=== PATIENT | female | born 1960 | race Asian ===

== ENCOUNTER 2021-09-22 08:40 | Outpatient (CLI) | payer BC ==
[2021-09-22 21:46] LABS: SARS-CoV-2 PCR by NAA Not Detected (NotDetected)
== END 2021-09-22 08:41 | disposition home or self-care (01) ==
LOC: LABBT 08:40
PROVIDERS: ATTEND Internal Medicine Gastroenterology
DX: Z01.812 Encounter for preprocedural laboratory examination (principal); Z12.11 Encounter for screening for malignant neoplasm of colon; Z20.822 Contact with and (suspected) exposure to COVID-19
CPT/HCPCS: U0003; U0005

== ENCOUNTER 2021-09-25 07:42 | Day surgery (SDC) | payer BC ==
[2021-09-24 09:34] VITALS: BMI 24.7
[2021-09-25] MEDS ORDERED: PHENYLEPHRINE-NS 100 MCG/ML 10 ML SYRINGE ONE (09:34)
[2021-09-25] MEDS ORDERED: Lidocaine 1% PF 5 ML VIAL ONE (09:34)
[2021-09-25] MEDS ORDERED: PROPOFOL 200 MG/20 ML VIAL ONE (09:34)
== END 2021-09-25 10:35 | disposition home or self-care (01) ==
LOC: SDC 07:42
PROVIDERS: ATTEND Internal Medicine Gastroenterology
PROC: 0DBN8ZX Excision of Sigmoid Colon, Via Natural or Artificial Opening Endoscopic, Diagnostic (ICD-10-PCS; principal; 2021-09-25)
DX: Z12.11 Encounter for screening for malignant neoplasm of colon (principal); K63.5 Polyp of colon; K64.9 Unspecified hemorrhoids; I10 Essential (primary) hypertension; Z90.710 Acquired absence of both cervix and uterus; Z88.8 Allergy status to other drugs, medicaments and biological substances; Z98.890 Other specified postprocedural states; Z79.899 Other long term (current) drug therapy
CPT/HCPCS: 88305; J2704

== ENCOUNTER 2022-05-12 15:21 | Outpatient (CLI) | payer BC | END 2022-05-12 15:22 | disposition home or self-care (01) | LOC: RAD-FRANK 15:21 | PROVIDERS: ATTEND Family Medicine | DX: J40 Bronchitis, not specified as acute or chronic (principal) | CPT/HCPCS: 71046 ==

== ENCOUNTER 2022-09-06 18:13 | Inpatient (IN) | payer BC ==
[~2022-09-06 18:13] MED LIST: Iopamidol-370 76% 500 ML 1 ML ONE
[2022-09-06 18:37] LABS: #Basophils 0.1 thou/uL (0.0-0.2); #Eosinphils 0.1 thou/uL (0.0-0.7); #Lymphocytes 5.4 thou/uL (1.20-3.40); #Monocytes 1.1 thou/uL (0.11-0.59); #Neutrophils 4.9 thou/uL (1.40-6.50); %Basophils 0.7 % (0.0-1.0); %Eosinophils 0.7 % (0.0-10.0); %Lymphocytes 46.5 % (21.0-51.0); %Monocytes 9.3 % (0.0-10.0); %Neutrophils 42.7 % (42.0-75.0); Hemoglobin 13.7 g/dL (12.0-16.0); Mean Corpuscular HGB CONC 32.9 g/dL (32.0-36.0); Mean Corpuscular Hemoglobin 29.6 pg (27.0-31.0); Mean Corpuscular Volume 89.8 fL (78.0-98.0); Mean Platelet Volume 6.6 fL (7.4-10.4); Platelet Count 296 thou/uL (130-400); RBC Distribution Width 11.9 % (11.5-14.5); Red Blood Cell (RBC) Count 4.65 mill/uL (4.20-5.40); White Blood Cell (WBC) Count 11.5 thou/uL (4.8-10.8)
[2022-09-06 19:08] LABS: ALT (SGPT) 57 U/L (8-55); AST (SGOT) 45 U/L (5-34); Albumin 4.3 g/dL (3.5-5.0); Alkaline Phosphatase 133 U/L (40-110); Anion Gap 14 mmol/L (10-20); BUN (Urea Nitrogen) 7 mg/dL (9.8-20.1); Bilirubin, Total 0.3 mg/dL (0.2-1.2); Calc. Creatinine Clearance 0 mL/min (70-130); Carbon Dioxide 25 mmol/L (22-29); Chloride 103 mmol/L (98-107); Estimated GFR 98; Globulin 2.9 g/dL (2.4-3.5); Glucose 107 mg/dL (70-105); Lipase 38 U/L (8-78); Potassium 3.5 mmol/L (3.5-5.1); Protein, Total 7.2 g/dL (6.0-8.3); Sodium 138 mmol/L (136-145)
[2022-09-06] MEDS ORDERED: Zolpidem Tartrate 5 MG TAB PO PRN (22:05)
[2022-09-06] MEDS ORDERED: Nitroglycerin 0.4 MG TAB (25 Tab Bottle) SL PRN (22:05)
[2022-09-06] MEDS ORDERED: Guaifenesin DM 100-10/5 ML UDCUP PO PRN (22:05)
[2022-09-06] MEDS ORDERED: Ondansetron PF 4 MG/2 ML Vial IVP PRN (22:05)
[2022-09-06] MEDS ORDERED: Aspirin 325 MG TAB PO SCH (22:15)
[2022-09-06] MEDS ORDERED: Metoprolol Tartrate 25 MG TAB PO SCH (22:30)
[2022-09-06 23:16] LABS: Troponin I Less than 0.010 ng/mL (< 0.028)
[2022-09-07 00:46] VITALS: BMI 22.8
[2022-09-07] MEDS: cefTRIAXone\\ROCEPHIN 1 GM in Sodium Chloride 0.9% 100 ML IVPB SCH ×2 (01:18→20:08)
[2022-09-07] MEDS: Sodium Chloride 0.9% 1,000 ML IV SCH ×3 (01:19→20:08)
[2022-09-07 02:05] LABS: #Eosinphils 0.1 thou/uL (0.0-0.7); #Lymphocytes 4.6 thou/uL (1.20-3.40); #Monocytes 0.9 thou/uL (0.11-0.59); %Eosinophils 0.8 % (0.0-10.0); %Lymphocytes 47.8 % (21.0-51.0); %Monocytes 9.4 % (0.0-10.0); %Neutrophils 42.1 % (42.0-75.0); Hemoglobin 12.4 g/dL (12.0-16.0); Mean Corpuscular HGB CONC 32.4 g/dL (32.0-36.0); Mean Corpuscular Hemoglobin 29.4 pg (27.0-31.0); Mean Corpuscular Volume 90.9 fl (78.0-98.0); Mean Platelet Volume 6.5 fL (7.4-10.4); Platelet Count 286 thou/uL (130-400); RBC Distribution Width 11.8 % (11.5-14.5); Red Blood Cell (RBC) Count 4.21 mill/uL (4.20-5.40); White Blood Cell (WBC) Count 9.6 thou/uL (4.8-10.8)
[2022-09-07 02:28] LABS: Troponin I Less than 0.010 ng/mL (< 0.028)
[2022-09-07 02:33] LABS: ALT (SGPT) 47 U/L (8-55); AST (SGOT) 31 U/L (5-34); Albumin 3.7 g/dL (3.5-5.0); Alkaline Phosphatase 116 U/L (40-110); Anion Gap 13 mmol/L (10-20); BUN (Urea Nitrogen) 7 mg/dL (9.8-20.1); Bilirubin, Total 0.3 mg/dL (0.2-1.2); Calc. Creatinine Clearance 77 mL/min (70-130); Calcium 8.7 mg/dL (7.8-10.44); Carbon Dioxide 24 mmol/L (22-29); Cardiac Risk 3.1 (Less than 4.5); Chloride 103 mmol/L (98-107); Cholesterol 169 mg/dl (< 200 Desired); Estimated GFR 102; Globulin 2.9 g/dL (2.4-3.5); Glucose 105 mg/dL (70-105); HDL Cholesterol 55 mg/dL (>60 Neg Risk); LDL Cholesterol, Calculated 92 mg/dL; Potassium 3.9 mmol/L (3.5-5.1); Protein, Total 6.6 g/dL (6.0-8.3); Sodium 136 mmol/L (136-145); Triglycerides 112 mg/dL (Less than 150)
[2022-09-07] MEDS: Aspirin Chewable 81 MG TAB PO SCH (08:34)
[2022-09-07] MEDS: Clopidogrel Bisulfate 75 MG TAB PO SCH (08:34)
[2022-09-07] MEDS: Enoxaparin Sodium 40 MG/0.4 ML SYRINGE SC SCH (08:34)
[2022-09-07] MEDS: Losartan 25 MG TAB PO SCH (08:35)
[2022-09-07] MEDS: Famotidine 20 MG TAB PO SCH ×2 (08:35→20:08)
[2022-09-07] MEDS: Metoprolol Tartrate 25 MG TAB PO SCH ×2 (08:35→20:08)
[2022-09-07] MEDS ORDERED: Prevnar 13-Val Conj/PF 0.5 ML SYRINGE IM ONE (09:00)
[2022-09-07] MEDS ORDERED: FLU VACC QS2022-23(6MOS UP)/PF 60 MCG/0.5 ML SYRINGE IM ONE (09:00)
[2022-09-07] MEDS: Azithromycin 500 MG in Sodium Chloride 0.9% 250 ML 250 ML IVPB SCH (10:28)
[2022-09-07] MEDS: Acetaminophen 325 MG TAB PO PRN (20:06)
[2022-09-08] MEDS: Acetaminophen 325 MG TAB PO PRN ×2 (03:45→16:18)
[2022-09-08] MEDS: Sodium Chloride 0.9% 1,000 ML IV SCH ×2 (08:19→20:32)
[2022-09-08] MEDS: Clopidogrel Bisulfate 75 MG TAB PO SCH (08:21)
[2022-09-08] MEDS: Aspirin Chewable 81 MG TAB PO SCH (08:21)
[2022-09-08] MEDS: Metoprolol Tartrate 25 MG TAB PO SCH ×2 (08:21→20:31)
[2022-09-08] MEDS: Enoxaparin Sodium 40 MG/0.4 ML SYRINGE SC SCH (08:22)
[2022-09-08] MEDS: Famotidine 20 MG TAB PO SCH ×2 (08:22→20:31)
[2022-09-08] MEDS: Losartan 25 MG TAB PO SCH (08:22)
[2022-09-08] MEDS: Azithromycin 500 MG in Sodium Chloride 0.9% 250 ML 250 ML IVPB SCH (10:20)
[2022-09-08] MEDS ORDERED: Mag-Al Plus 1200 MG/1200 MG/120 MG/30 ML UDCUP PO PRN (10:26)
[2022-09-08] MEDS: cefTRIAXone\\ROCEPHIN 1 GM in Sodium Chloride 0.9% 100 ML IVPB SCH (22:39)
[2022-09-09] MEDS: Sodium Chloride 0.9% 1,000 ML IV SCH (07:16)
[2022-09-09] MEDS: Aspirin Chewable 81 MG TAB PO SCH (09:36)
[2022-09-09] MEDS: Metoprolol Tartrate 25 MG TAB PO SCH (09:37)
[2022-09-09] MEDS: Famotidine 20 MG TAB PO SCH (09:37)
[2022-09-09] MEDS: Losartan 25 MG TAB PO SCH (09:38)
[2022-09-09] MEDS: Enoxaparin Sodium 40 MG/0.4 ML SYRINGE SC SCH (09:38)
[2022-09-09] MEDS: Clopidogrel Bisulfate 75 MG TAB PO SCH (09:38)
[2022-09-09] MEDS: Azithromycin 500 MG in Sodium Chloride 0.9% 250 ML 250 ML IVPB SCH (09:39)
[2022-09-09 15:48] VITALS: BP 163/83; TEMP 98.4
== END 2022-09-09 16:30 | disposition home or self-care (01) | DRG 195 ==
LOC: ERS 18:13 → 2SW 21:49 → OBSVTOIN 09-08 10:21
PROVIDERS: ADMIT Internal Medicine; ATTEND Internal Medicine
DX: J18.9 Pneumonia, unspecified organism (principal); Z20.822 Contact with and (suspected) exposure to COVID-19; I10 Essential (primary) hypertension; Z79.899 Other long term (current) drug therapy; Z90.710 Acquired absence of both cervix and uterus; Z88.8 Allergy status to other drugs, medicaments and biological substances
CPT/HCPCS: 36415; 71045; 71275; 72050; 80053; 80061; 83690; 84145; 84484; 85025; 85379; 87040; 93005; 93306; 94760; 96372; 96374; 96375; 96376; G0378; J0456; J0696; J1650; J3490; J7050; U0003; U0005